=== PATIENT | male | born 1980 | race African-American/Black ===

== ENCOUNTER 2025-05-02 02:56 | Emergency (ER) | payer SELFPAY ==
[~2025-05-02] VITALS: Ht 188 cm; Wt 92.0 kg
[2025-05-02 03:08] VITALS: O2SAT 100
[2025-05-02] MEDS ORDERED: LIDOCAINE HCL 1% 20ML VIAL INFIL ONE (03:30)
[2025-05-02] MEDS ORDERED: PHENYLEPHRINE 100MCG/ML 10ML (PRIAPISM) MC NR (03:45)
[2025-05-02 03:49] LABS: BASOPHILS % 0.2 % (0.0-2.0); EOSINOPHILS % 0.4 % (0.0-5.0); HEMATOCRIT. 42.8 % (42.0-52.0); HEMOGLOBIN. 13.6 g/dL (14.0-18.0); LYMPHOCYTES % 29.7 % (20.0-50.0); MEAN PLATELET VOLUME 8.9 fl (7.4-10.4); MONOCYTES % 9.0 % (2.0-8.0); NEUTROPHILS % 60.7 % (40.0-76.0); PLATELET 210 x1000/uL (130-400); RED BLOOD CELL COUNT 4.84 mill/uL (4.7-6.1); RED CELL DISTRIBUTION WIDTH 16.2 % (11.6-14.6)
[2025-05-02 04:03] LABS: CREATININE 1.3 mg/dL (0.6-1.3); UREA NITROGEN BLOOD 17 mg/dL (9-23)
[2025-05-02 04:06] LABS: CLARITY URINE CLEAR (CLEAR); COLOR URINE YELLOW (YELLOW); GLUCOSE URINE NEGATIVE (NEGATIVE); KETONES URINE 1+ (NEGATIVE); LEUKOCYTE ESTERASE URINE NEGATIVE (NEGATIVE); NITRITE URINE NEGATIVE (NEGATIVE); OCCULT BLOOD URINE 3+ (NEGATIVE); PH URINE 6.0 (4.5-8.0); PROTEIN URINE 2+ (NEGATIVE); SPECIFIC GRAVITY URINE 1.027 (1.005-1.030); UROBILINOGEN URINE 1.0 E.U./dL (0.2-1.0)
[2025-05-02 05:25] LABS: RBC URINE 0-2 /hpf (0-2); WBC URINE 0-2 /hpf (0-2)
[2025-05-02 05:26] LABS: BACTERIA URINE NONE SEEN; SQUAMOUS EPITHELIAL CELL URINE NONE SEEN /lpf (RARE/1+)
[2025-05-02 09:17] LABS: BG BASE EXCESS -13.7 mmol/L (-2.0-3.0); BG CARBOXYHEMOGLOBIN 2.7 % (0.5-1.5); BG DEOXYHEMOGLOBIN 54.5 % (0.0-5.0); BG HCO3 ACT 16.9 mmol/L (21.0-28.0); BG METHEMOGLOBIN 0.0 % (0.5-1.5); BG OXYGEN SATURATION 44.0 % (94.0-98.0); BG OXYHEMOGLOBIN 42.8 % (94.0-98.0); BG PCO2 58.2 mmHg (35.0-48.0); BG PH 7.082 (7.350-7.450); BG PO2 25.7 mmHg (83.0-108.0); BG TOTAL HEMOGLOBIN 16.8 g/dL (13.5-17.5); BG VENT MODE ROOM AIR
[2025-05-02 10:25] VITALS: BP 115/73; PULSE 81; RESP 16; TEMP 37; O2SAT 100
== END 2025-05-02 11:12 | disposition short-term general hospital (02) ==
LOC: ER 02:56 → CANBEDREQ 10:49 → ER 11:12
DX: N48.30 Priapism, unspecified (principal); F17.200 Nicotine dependence, unspecified, uncomplicated; F10.90 Alcohol use, unspecified, uncomplicated; Y90.9 Presence of alcohol in blood, level not specified
CPT/HCPCS: 99291; 54220; 80048; 81003; 85025; 36415; 82805; 82375; 36600; J2003